=== PATIENT | female | born 1945 | race Caucasian/White ===

== ENCOUNTER 2017-01-18 05:53 | Emergency (ER) | payer MEDICARE, OTHER ==
[~2017-01-18] VITALS: Ht 162.6 cm; Wt 72.7 kg
[2017-01-18 06:01] VITALS: BP 172/98; PULSE 65; RESP 18; O2SAT 100
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
[2017-01-18 06:31] LABS: BASOPHILS % (AUTO) 0.5 % (0-3); EOSINOPHILS % (AUTO) 1.6 % (0-5); MONOCYTES % (AUTO) 7.6 % (4-12); Mean Corpuscular Hemoglobin 29.3 pg (27.0-35.0); Mean Corpuscular Volume 90.1 fL (81-100); NEUTROPHILS % (AUTO) 63.3 % (40-74); Platelet Count 231 bil/L (150-400)
[2017-01-18] MEDS ORDERED: cefTRIAXone Inj 2,000 MG in Dextrose 5% Minibag Plus 50 ML IV ONE (07:45)
[2017-01-18] MEDS ORDERED: SULF1TAB7 PO (08:06)
[2017-01-18] MEDS ORDERED: PHEN-777 PO (08:06)
[2017-01-18] MEDS ORDERED: Phenazopyridine 97.5 mg Tablet PO ONE (08:10)
[2017-01-18 08:43] LABS: APPEARANCE,URINE HAZY (CLEAR,HAZY); COLOR,URINE YELLOW (YELLOW); OCCULT BLOOD,URINE LARGE (NEGATIVE); UROBILINOGEN,URINE NORMAL (NORMAL)
[2017-01-18 08:44] LABS: PH,URINE 6.5 (5.0-8.0)
[2017-01-18 09:06] VITALS: BP 158/75; PULSE 58; RESP 14; O2SAT 98
== END 2017-01-18 09:07 | disposition home or self-care (01) ==
LOC: SED 05:53
DX: N30.01 Acute cystitis with hematuria (principal); I10 Essential (primary) hypertension; I25.10 Atherosclerotic heart disease of native coronary artery without angina pectoris; E11.9 Type 2 diabetes mellitus without complications; Z95.1 Presence of aortocoronary bypass graft; Z95.5 Presence of coronary angioplasty implant and graft; Z91.040 Latex allergy status; Z88.0 Allergy status to penicillin
CPT/HCPCS: 36415; 80053; 81000; 85025; 87077; 87086; 87088; 87186; 96365; 99284; J0696